=== PATIENT | female | born 1950 | race Caucasian/White ===

== ENCOUNTER 2016-05-16 07:24 | Observation (INO) | payer MEDICARE, OTHER ==
[2016-05-14 14:05] LABS: HEMATOCRIT 42.2 % (36.0-48.0); HEMOGLOBIN 14.6 g/dL (12.0-16.0)
[2016-05-14 14:19] LABS: BUN (BLOOD UREA NITROGEN) 18 MG/DL (6-23); CALCIUM, SERUM 8.9 MG/DL (8.5-10.4); CHLORIDE, SERUM 103 MMOL/L (96-112); CO2 (CARBON DIOXIDE) 29 MMOL/L (24-34); CREATININE 0.94 MG/DL (0.55-1.02); GFR AFRICAN AMERICAN 72 ML/MIN (>=60); GFR NON AFRICAN AMERICAN 62 ML/MIN (>=60); POTASSIUM, SERUM 3.6 MMOL/L (3.5-5.3); SODIUM, SERUM 142 MMOL/L (135-148)
[2016-05-14 14:20] LABS: GLUCOSE, SERUM 112 MG/DL (60-99)
[2016-05-14 14:33] LABS: ASCORBIC ACID (UR NOT ORDER) NEG (NEG); BILIRUBIN, URINE NEGATIVE (NEG); KETONE, URINE NEGATIVE (NEG); LEUKOCYTE ESTERASE(NOT OR TRACE (NEG); WBC (NOT ORDERED) (RFLEX) 2 (0-5)
--- NOTE | ~2016-05-16 | OP ---
Record Of Operation [facility] [address] [place]. [address] NAME: BRENDA OTERO : 46 STATUS : ADM Dana PAT#: [id number] AGE: 66 ADM/REG DATE : 05/16/16 MR#: [id number] REPORT SERV DATE: 05/16/16 DICTATED BY: MARTIN BARILLAS JR. DATE: 05/16/16 REPORT STATUS : Draft TRANSCRIBED BY: MODPascale DATE: 05/16/16 DATE OF PROCEDURE: 05/16/2016 SURGEON: Martin Barillas M.D. PREOPERATIVE DIAGNOSIS: Stress urinary incontinence. POSTOPERATIVE DIAGNOSIS: Stress urinary incontinence. PROCEDURE PERFORMED: Autologous fascia sling. COMPLICATIONS: None. CONSULTATIONS: None. ANESTHESIA: General with an endotracheal tube. SPECIMENS: None. DRAINS: A 16-Polish Dean catheter. ESTIMATED BLOOD LOSS: 40 mL. INDICATION: Ms Otero is a 66-year-old female who I have been following with stress urinary incontinence. Based on examination in the office, she had classic urethral hypermobility and comes today for an autologous fascia sling. PROCEDURE IN DETAIL: After the patient was identified and proper informed consent was obtained, she was taken to the operating room. General anesthesia was performed without complication using an endotracheal tube. She was then prepped and draped in the normal sterile fashion in the lithotomy position. I made a 6 cm incision along the left distal thigh just proximal to the lateral trochanter of the femur and harvested a 10 x 2 cm segment of tensor fascia adam. I irrigated the wound with sterile saline and closed the wound using 3-0 Vicryl in the subcutaneous tissue and a 4-0 Monocryl on the skin. Telfa, Tegaderm, and Mrav wrap were placed for dressing. I then placed the graft in a sterile saline solution and placed a 0 Prolene suture through and through and fold it over in on each side. Multiple passes through each side were taken and then this graft was left in the saline solution. I then placed a Dean catheter and placed an Allis clamp on the distal urethral margin of the vaginal mucosa. I infiltrated the vaginal mucosa using a 0.25% Marcaine with epinephrine to raise the vaginal mucosa off the surface of the bladder. I then made a U-shaped incision and elevated the bladder off the vaginal mucosa in order to accommodate the sling. I then entered the space of Retzius on each side of the bladder neck using digital dissection. I then packed the vagina and made a suprapubic incision and transected the subcutaneous tissue down to expose the rectus fascia. I then placed two needles along the right side of the bladder neck down into the vaginal incision from the suprapubic area. Cystoscopic examination of the bladder and bladder neck after placement of the needles was normal. Record Of Operation [facility] [address] [place]. [address] NAME: BRENDA OTERO : 46 STATUS : ADM Dana PAT#: [id number] AGE: 66 ADM/REG DATE : 05/16/16 MR#: [id number] REPORT SERV DATE: 05/16/16 DICTATED BY: MARTIN BARILLAS JR. DATE: 05/16/16 REPORT STATUS : Draft TRANSCRIBED BY: MATT DATE: 05/16/16 There was no evidence of injury to the bladder neck itself or bladder. I then passed one side of the Prolene suture material from the sling up to the suprapubic area and repeated the process on the left side. Once this had been done, I positioned the sling over the proximal to mid urethra tacking the distal and proximal edges to the vaginal connective tissue to keep it spread out evenly across the length of the urethra and then ligated the Prolene sutures with approximately 1.5 to 1 inch of space between the knot and the rectus fascia. Once I was satisfied that the sling was in good position, I performed cystoscopy once again and noted no elevation of the bladder neck and everything appeared anatomically the same as it was prior to placement of the sling. I then closed the vaginal wound after irrigation using a 2-0 Vicryl suture in a running fashion. I closed the suprapubic wound after irrigation using 3-0 Vicryl in the Rosalva's fascia and 4-0 Monocryl in the skin. Telfa and Tegaderm were used for dressing in this area and a vaginal packing was placed along with Dean catheter. The patient was awakened in the operating room and transferred to the postanesthesia care unit in stable condition. SUZANNE/MATT Martin Barillas Jr., M.D. / [id number] CC: Krish Nagel Jr., PAUL E
[~2016-05-16 07:24] MED LIST: ASA5GR PO; CINNAMONPO; HYDROCHLOROT25 MG PO; LISINOPRIL40 MG PO; NEUR300 PO; NORV5 PO; PRAVAC PO; VITAMIN B-121000 MC1 SL
[2016-05-17] MEDS ORDERED: NORCO1 TA2 PO (10:30)
[2016-05-17] MEDS ORDERED: DSS PO (10:30)
== END 2016-05-17 13:10 | disposition home or self-care (01) ==
LOC: SDC 07:24 → SDC/OF 12:52 → 4SO 14:32
PROVIDERS: Urology
PROC: 0TSD0ZZ Reposition Urethra, Open Approach (ICD-10-PCS; principal; 2016-05-16 09:00)
DX: N39.3 Stress incontinence (female) (male) (principal); I10 Essential (primary) hypertension; F17.210 Nicotine dependence, cigarettes, uncomplicated; Z85.3 Personal history of malignant neoplasm of breast; Z98.890 Other specified postprocedural states
CPT/HCPCS: 80048; 81001; 85014; 85018; 93005; 96372; A9270-GY; G0378; J2250; J2270; J2370; J2405; J2710; J3010